=== PATIENT | female | born 1970 | race American Indian/Alaskan Native ===

== ENCOUNTER 2016-07-27 09:49 | Emergency (ER) | payer MEDICAID ==
[2016-07-27 10:04] VITALS: BP 114/66
--- NOTE | 2016-07-27 10:32 | Emergency Department Report ---
Entered by EKATERINA MELTON, acting as scribe for FAIZAN CARDONA PA. ED Allergic Reaction HPI - General Chief complaint: Allergic Reaction Stated complaint: RASH/SEVERE ITCHING/SWELLING/PAIN Time Seen by Provider: 07/27/16 10:10 Source: patient Mode of arrival: Ambulatory Limitations: No Limitations - History of Present Illness Initial Comments: 46 y/o female with a PMHx of bipolar disorder and depression c/o allergic reaction and generalized rash for a week. Describes rash as burning in quality. Associated symptoms include itching to affected areas and body aches, but she denies purulent drainage, facial swelling, sore throat, chest pain, SOB, nausea , vomiting, fever, and chills. Rates body aches a 6/10 in severity. Notes not taking or applying OTC medications for relief. NKDA. ANTONIO Complaint: allergic reaction, hives, other (rash) Onset/Timin -: week(s) Exposure: unknown Symptoms: rash (generalized), itching. denies: facial swelling, lip swelling, difficulty swallowing, difficulty breathing, orolingual swelling, syncopy, dizziness, nausea, vomiting, abdominal pain Severity: moderate (6/10 bodyaches) Treatment Prior to Arrival: none Previous Allergy History: none - Related Data Home Medications Medication Instructions Recorded Confirmed Last Taken Quetiapine Fumarate [Seroquel] 800 mg PO DAILY 07/12/15 07/12/15 07/11/15 Sertraline HCl [Zoloft] 50 mg PO DAILY 07/12/15 07/12/15 07/11/15 Previous Rx's Medication Instructions Recorded Last Taken Type Ferrous Sulfate [Feosol 325 MG tab] 325 mg PO BID #60 tablet 07/13/15 Unknown Rx HYDROcodone/APAP 5-325 [[place] 1 each PO Q6HR PRN #20 tablet 07/13/15 Unknown Rx 5/325] Ibuprofen [Motrin] 800 mg PO Q8HR PRN #30 tablet 07/13/15 Unknown Rx Promethazine [Phenergan TAB] 25 mg PO Q6HR PRN #30 tab 07/13/15 Unknown Rx hydrOXYzine HCL [Atarax] 25 mg PO Q6HR PRN #20 tablet 07/27/16 Unknown Rx methylPREDNISolone [Medrol] 4 mg PO QDAY #1 tab.ds.pk 07/27/16 Unknown Rx Allergies Allergy/AdvReac Type Severity Reaction Status Date / Time No Known Allergies Allergy Unverified 07/12/15 14:47 ED Review of Systems Comment: All other systems reviewed and negative Constitutional: no symptoms reported. denies: chills, fever Eyes: denies: eye pain, eye discharge, vision change ENT: denies: ear pain, throat pain Respiratory: denies: cough, shortness of breath, SOB with exertion, SOB at rest , stridor, wheezing Cardiovascular: denies: chest pain, palpitations, edema, syncope Endocrine: no symptoms reported Gastrointestinal: denies: abdominal pain, nausea, vomiting, diarrhea Genitourinary: denies: urgency, dysuria, discharge Musculoskeletal: myalgia (body aches). denies: back pain, joint swelling, arthralgia Skin: rash (generalized). denies: lesions, other (facial swelling) Neurological: denies: headache, weakness, paresthesias, other (dizziness) Psychiatric: denies: anxiety, depression Hematological/Lymphatic: denies: easy bleeding, easy bruising ED Past Medical Hx - Past Medical History Previous Medical History?: Yes Hx Psychiatric Treatment: Yes (bipoplar, depression) Additional medical history: abd. pain - Surgical History Past Surgical History?: Yes Hx Appendectomy: Yes (with right oophorectomy) Additional Surgical History: Umbilical hernia repair - Social History Smoking Status: Never Smoker Substance Use Type: Alcohol, Prescribed - Medications Home Medications: Home Medications Medication Instructions Recorded Confirmed Last Taken Type Quetiapine Fumarate [Seroquel] 800 mg PO DAILY 07/12/15 07/12/15 07/11/15 History Sertraline HCl [Zoloft] 50 mg PO DAILY 07/12/15 07/12/15 07/11/15 History Ferrous Sulfate [Feosol 325 MG tab] 325 mg PO BID #60 tablet 07/13/15 Unknown Rx HYDROcodone/APAP 5-325 [[place] 1 each PO Q6HR PRN #20 tablet 07/13/15 Unknown Rx 5/325] Ibuprofen [Motrin] 800 mg PO Q8HR PRN #30 tablet 07/13/15 Unknown Rx Promethazine [Phenergan TAB] 25 mg PO Q6HR PRN #30 tab 07/13/15 Unknown Rx hydrOXYzine HCL [Atarax] 25 mg PO Q6HR PRN #20 tablet 07/27/16 Unknown Rx methylPREDNISolone [Medrol] 4 mg PO QDAY #1 tab.ds.pk 07/27/16 Unknown Rx ED Physical Exam - General Limitations: No Limitations General appearance: alert, in no apparent distress - Head Head exam: Present: atraumatic, normocephalic - Eye Eye exam: Present: normal appearance, PERRL, EOMI Pupils: Present: normal accommodation - ENT ENT exam: Present: normal exam, normal orophraynx, mucous membranes moist - Expanded ENT Exam Expanded Mouth exam: Present: normal external inspection (uvula is midline and oral airway is patent), tongue normal, other (no angioedema present) Teeth exam: Present: normal inspection Throat exam: Positive: normal inspection. Negative: tonsillar erythema, tonsillomegaly, tonsillar exudate - Neck Neck exam: Present: normal inspection, full ROM. Absent: lymphadenopathy - Respiratory Respiratory exam: Present: normal lung sounds bilaterally. Absent: respiratory distress, wheezes, rales, rhonchi, stridor - Cardiovascular Cardiovascular Exam: Present: regular rate, normal rhythm, normal heart sounds. Absent: systolic murmur, diastolic murmur, rubs, gallop - GI/Abdominal GI/Abdominal exam: Present: soft, normal bowel sounds - Extremities Exam Extremities exam: Present: normal inspection - Back Exam Back exam: Present: normal inspection - Neurological Exam Neurological exam: Present: alert, oriented X3 - Psychiatric Psychiatric exam: Present: normal affect, normal mood - Skin Skin exam: Present: warm, dry, intact, rash - Expanded Skin Exam Expanded Type of lesion: Present: rash Distribution of rash: generalized Description of rash: Present: urticarial ED Course Vital Signs 07/27/16 10:00 Temperature 98 F Pulse Rate 72 Respiratory 18 Rate Blood Pressure 114/66 O2 Sat by Pulse 98 Oximetry ED Disposition Clinical Impression: Urticaria Disposition: DISCHARGED TO HOME OR SELFCARE Is pt being admited?: No Condition: Stable Instructions: Urticaria (ED) Prescriptions: hydrOXYzine HCL [Atarax] 25 mg PO Q6HR PRN #20 tablet PRN Reason: Itching methylPREDNISolone [Medrol] 4 mg PO QDAY #1 tab.ds.pk Forms: Work/School Release Form(ED) This documentation as recorded by the GERONIMO kelly JASMINE,accurately reflects the service I personally performed and the decisions made by me,FAIZAN CARDONA PA.
[2016-07-27] MEDS ORDERED: DECADRON IM ONE (10:34)
== END 2016-07-27 10:45 | disposition home or self-care (01) ==
LOC: ED 09:49
DX: L29.9 Pruritus, unspecified (principal); F31.9 Bipolar disorder, unspecified; Y92.9 Unspecified place or not applicable
CPT/HCPCS: 96372; 99282; J1100

== ENCOUNTER 2016-08-13 14:22 | Emergency (ER) | payer MEDICAID ==
[2016-08-13 14:36] VITALS: BP 127/78
--- NOTE | 2016-08-20 10:23 | ED Elopement Review ---
ED Pt Elopement review - Results review Lab results: Laboratory Tests 08/13/16 14:37 POC Glucose 99 - Call Back decision Pt Call Back Decision: No action required
== END 2016-08-13 18:50 | disposition left against medical advice (07) ==
LOC: ED 14:22
DX: R22.0 Localized swelling, mass and lump, head (principal); H53.8 Other visual disturbances; Z53.21 Procedure and treatment not carried out due to patient leaving prior to being seen by health care provider
CPT/HCPCS: 82962; 93005; 93010

== ENCOUNTER 2017-04-07 20:19 | Emergency (ER) | payer MEDICAID ==
[2017-04-08 00:12] LABS: Basophils # (Auto) 0.1 K/mm3 (0.0-0.1); Basophils % (Auto) 0.9 % (0.0-1.8); Eosinophils # (Auto) 0.3 K/mm3 (0.0-0.4); Eosinophils % (Auto) 3.7 % (0.0-4.3); Hematocrit 29.9 % (30.3-42.9); Hemoglobin 9.2 gm/dl (10.1-14.3); Lymphocytes # (Auto) 1.1 K/mm3 (1.2-5.4); Lymphocytes % (Auto) 12.3 % (13.4-35.0); Mean Corpuscular HGB Conc 31 % (30-34); Monocytes # (Auto) 1.3 K/mm3 (0.0-0.8); Monocytes % (Auto) 14.3 % (0.0-7.3); Platelet Count 473 K/mm3 (140-440); Red Blood Count 4.28 M/mm3 (3.65-5.03)
[2017-04-08 00:14] LABS: Mean Corpuscular Hemoglobin 22 pg (28-32); Mean Corpuscular Volume 70 fl (79-97); Red Cell Distribution Width 20.9 % (13.2-15.2)
[2017-04-08 00:16] LABS: BUN/Creatinine Ratio 10; Blood Urea Nitrogen 6 mg/dL (7-17); Calcium 8.7 mg/dL (8.4-10.2); Hemolysis Index 1
--- NOTE | 2017-04-08 00:28 | XRay Report ---
FINAL REPORT EXAM: XR CHEST ROUTINE 2V HISTORY: Shortness of breath. TECHNIQUE: Frontal and lateral radiographs of the chest were obtained. No prior studies are available for comparison. FINDINGS: The exam is limited due to low lung volumes. There is borderline cardiomegaly. The lungs are clear bilaterally, without focal infiltrate or effusion. There is no pneumothorax. There are mild spondylotic changes seen in the spine. IMPRESSION: Low lung volumes, with no active disease seen in the chest.
[2017-04-08] MEDS ORDERED: TESSALON PERLES PO ONE (07:56)
[2017-04-08] MEDS ORDERED: NORCO 5/325 PO ONE (07:56)
[2017-04-08] MEDS ORDERED: NEURONTIN PO ONE (07:56)
[2017-04-08] MEDS ORDERED: NACL 0.9% 1000 ML 1,000 ML IV ONE (07:56)
[2017-04-08] MEDS ORDERED: TORADOL IV ONE (07:56)
[2017-04-08] MEDS ORDERED: DUONEB *Not for PRN Use IH ONE (08:00)
[2017-04-08] MEDS ORDERED: ZITHROMAX PO ONE (08:02)
--- NOTE | 2017-04-08 08:03 | Emergency Department Report ---
- General Chief Complaint: Dyspnea/Respdistress Stated Complaint: FILIPPO/WEAKNESS Time Seen by Provider: 04/08/17 07:23 Source: patient Mode of arrival: Ambulatory Limitations: No Limitations - History of Present Illness Initial Comments: 47-year-old female past medical history of hypertension, bipolar, depression, uterine fibroids with menorrhagia requiring transfusion presents to the hospital with complaints of cough and generalized body aches April 06. Patient also has a past history of diabetes but states her sugar has been good and she is no longer on medication. Patient was admitted to [place] on the until the and received blood transfusion for menorrhagia and anemia. After returning home patient developed a frequent cough initially productive with sputum and became rust-colored. Patient having generalized body aching lacie horses to her leg muscles and paresthesias to her feet that increase with pressure during ambulation. Low-grade fever upon arrival that resolved without ED treatment. Patient did not receive a flu shot this year. - Related Data Home Medications Medication Instructions Recorded Confirmed Last Taken Quetiapine Fumarate [Seroquel] 800 mg PO DAILY 07/12/15 07/12/15 07/11/15 Sertraline HCl [Zoloft] 50 mg PO DAILY 07/12/15 07/12/15 07/11/15 Previous Rx's Medication Instructions Recorded Last Taken Type Ferrous Sulfate [Feosol 325 MG tab] 325 mg PO BID #60 tablet 07/13/15 Unknown Rx HYDROcodone/APAP 5-325 [[place] 1 each PO Q6HR PRN #20 tablet 07/13/15 Unknown Rx 5/325] Promethazine [Phenergan TAB] 25 mg PO Q6HR PRN #30 tab 07/13/15 Unknown Rx hydrOXYzine HCL [Atarax] 25 mg PO Q6HR PRN #20 tablet 07/27/16 Unknown Rx methylPREDNISolone [Medrol] 4 mg PO QDAY #1 tab.ds.pk 07/27/16 Unknown Rx ALBUTEROL Inhaler [ProAir HFA 2 puff IH QID PRN #1 inhalation 04/08/17 Unknown Rx Inhaler] Benzonatate [Tessalon Perles] 100 mg PO Q8HR PRN #30 capsule 04/08/17 Unknown Rx HYDROcodone/ACETAMINOPHEN [[place] 1 each PO Q6H PRN #20 tablet 02/10/18 Unknown Rx 5-325 Tablet] Ibuprofen [Motrin 800 MG tab] 800 mg PO Q8HR PRN #30 tablet 04/08/17 Unknown Rx Inhaler, Assist Devices [Space 1 each MC PRN #1 spacer 04/08/17 Unknown Rx Chamber Plus] Oseltamivir [Tamiflu] 75 mg PO BID #10 cap 04/08/17 Unknown Rx Allergies Allergy/AdvReac Type Severity Reaction Status Date / Time No Known Allergies Allergy Verified 08/13/16 14:30 ED Review of Systems ROS: Stated complaint: FILIPPO/WEAKNESS Other details as noted in HPI Comment: All other systems reviewed and negative Other: Constitutional: No fevers chills Eyes: No eye pain visual changes ENT: No ear pain or throat pain Neck: Denies pain Respiratory: Recent cough, intermittent wheezing Cardiovascular: Chest pain with coughing GI: Denies abdominal pain, nausea, vomiting, diarrhea : Denies dysuria Musculoskeletal: Generalized body and muscle aches, paresthesias to feet Skin: Denies rash, lesions, erythema Neurologic: Denies numbness, weakness Psychiatric: Denies suicidal ideation, hallucinations ED Past Medical Hx - Past Medical History Hx Hypertension: Yes Hx Diabetes: Yes Hx Psychiatric Treatment: Yes (bipoplar, depression) Additional medical history: abd. pain - Surgical History Hx Appendectomy: Yes (with right oophorectomy) Additional Surgical History: Umbilical hernia repair - Social History Smoking Status: Never Smoker Substance Use Type: None - Medications Home Medications: Home Medications Medication Instructions Recorded Confirmed Last Taken Type Quetiapine Fumarate [Seroquel] 800 mg PO DAILY 07/12/15 07/12/15 07/11/15 History Sertraline HCl [Zoloft] 50 mg PO DAILY 07/12/15 07/12/15 07/11/15 History Ferrous Sulfate [Feosol 325 MG tab] 325 mg PO BID #60 tablet 07/13/15 Unknown Rx HYDROcodone/APAP 5-325 [[place] 1 each PO Q6HR PRN #20 tablet 07/13/15 Unknown Rx 5/325] Promethazine [Phenergan TAB] 25 mg PO Q6HR PRN #30 tab 07/13/15 Unknown Rx hydrOXYzine HCL [Atarax] 25 mg PO Q6HR PRN #20 tablet 07/27/16 Unknown Rx methylPREDNISolone [Medrol] 4 mg PO QDAY #1 tab.ds.pk 07/27/16 Unknown Rx ALBUTEROL Inhaler [ProAir HFA 2 puff IH QID PRN #1 inhalation 04/08/17 Unknown Rx Inhaler] Benzonatate [Tessalon Perles] 100 mg PO Q8HR PRN #30 capsule 04/08/17 Unknown Rx HYDROcodone/ACETAMINOPHEN [[place] 1 each PO Q6H PRN #20 tablet 04/08/17 Unknown Rx 5-325 Tablet] Ibuprofen [Motrin 800 MG tab] 800 mg PO Q8HR PRN #30 tablet 04/08/17 Unknown Rx Inhaler, Assist Devices [Space 1 each MC PRN #1 spacer 04/08/17 Unknown Rx Chamber Plus] Oseltamivir [Tamiflu] 75 mg PO BID #10 cap 04/08/17 Unknown Rx ED Physical Exam - General Limitations: No Limitations - Other Other exam information: General: No limitations, patient is alert in no acute distress Head exam: Atraumatic, normocephalic Eyes exam: Normal appearance ENT: Moist mucous membrane, normal oropharynx Neck exam: Normal inspection, full range of motion, no meningismus nontender Respiratory exam: [place] and dry cough on exam with expiratory wheeze auscultated with coughing Cardiovascular: Normal rate and rhythm, normal heart sounds Abdomen: Soft, nondistended, and nontender, with normal bowel sounds, no rebound, or guarding Extremity: Full range of motion normal inspection no deformity, no calf tenderness or edema. Generalized muscle aches with palpation or 2+ DP pulses. Back: Normal Inspection, full range of motion, no tenderness Neurologic: Alert, oriented x3, cranial nerves intact, no motor or sensory deficit Psychiatric: normal affect, normal mood Skin: Warm, dry, intact ED Course Vital Signs 04/07/17 04/08/17 04/08/17 23:26 06:35 06:45 Temperature 100.6 F H Pulse Rate 104 H 80 Pulse Rate [ Posterior Bilateral Throughout] Respiratory 18 19 Rate Respiratory Rate [Posterior Bilateral Throughout] Blood Pressure 134/100 124/68 O2 Sat by Pulse 100 96 Oximetry 04/08/17 04/08/17 04/08/17 06:47 07:00 07:15 Temperature Pulse Rate 67 73 Pulse Rate [ Posterior Bilateral Throughout] Respiratory 20 18 18 Rate Respiratory Rate [Posterior Bilateral Throughout] Blood Pressure 133/51 133/51 O2 Sat by Pulse 99 92 95 Oximetry 04/08/17 04/08/17 04/08/17 07:30 07:45 08:01 Temperature 98.4 F Pulse Rate 78 79 70 Pulse Rate [ Posterior Bilateral Throughout] Respiratory 22 19 19 Rate Respiratory Rate [Posterior Bilateral Throughout] Blood Pressure 142/52 142/52 121/44 O2 Sat by Pulse 94 95 98 Oximetry 04/08/17 04/08/17 04/08/17 08:03 08:15 08:21 Temperature Pulse Rate 75 Pulse Rate [ 90 73 Posterior Bilateral Throughout] Respiratory 20 Rate Respiratory 18 20 Rate [Posterior Bilateral Throughout] Blood Pressure 121/44 O2 Sat by Pulse 96 Oximetry 04/08/17 04/08/17 04/08/17 08:30 08:36 08:45 Temperature Pulse Rate 70 78 Pulse Rate [ Posterior Bilateral Throughout] Respiratory 17 16 18 Rate Respiratory Rate [Posterior Bilateral Throughout] Blood Pressure 125/52 125/52 O2 Sat by Pulse 96 94 Oximetry 04/08/17 04/08/17 04/08/17 09:01 09:15 09:30 Temperature Pulse Rate 71 70 68 Pulse Rate [ Posterior Bilateral Throughout] Respiratory 16 18 16 Rate Respiratory Rate [Posterior Bilateral Throughout] Blood Pressure 103/47 103/47 109/57 O2 Sat by Pulse 94 95 96 Oximetry 04/08/17 04/08/17 04/08/17 09:45 10:00 10:15 Temperature Pulse Rate 70 64 65 Pulse Rate [ Posterior Bilateral Throughout] Respiratory 16 13 17 Rate Respiratory Rate [Posterior Bilateral Throughout] Blood Pressure 109/57 104/56 104/56 O2 Sat by Pulse 95 97 96 Oximetry 04/08/17 04/08/17 04/08/17 10:30 10:45 11:17 Temperature Pulse Rate 74 69 Pulse Rate [ Posterior Bilateral Throughout] Respiratory 12 19 Rate Respiratory Rate [Posterior Bilateral Throughout] Blood Pressure 116/63 116/63 116/63 O2 Sat by Pulse 93 97 98 Oximetry 04/08/17 04/08/17 11:30 11:45 Temperature Pulse Rate 68 82 Pulse Rate [ Posterior Bilateral Throughout] Respiratory 23 18 Rate Respiratory Rate [Posterior Bilateral Throughout] Blood Pressure 125/61 125/61 O2 Sat by Pulse 100 95 Oximetry - Reevaluation(s) Reevaluation #1: 04/08/17 10:56 Patient has frequent coughing initially was generalized body aches. Coughing greatly improved after [place] and albuterol treatment. Patient complains of residual pain to her legs and therefore additional pain medicine ordered. ED Medical Decision Making - Lab Data Result diagrams: 04/07/17 23:46 04/07/17 23:46 - Radiology Data Radiology results: report reviewed Read by radiologist Chest x-ray: low lung volumes and no infiltrate - Medical Decision Making Patient presents with generalized body aches, low-grade fever, and cough after receiving blood transfusion during hospitalization at [place]. Influenza A positive and likely source for fever, myalgias, and cough. No signs of infiltrate on chest x-ray. No signs of sepsis. Patient will be discharged home with Tamiflu and symptomatic treatment. Pt was able to ambulate to the restroom - Differential Diagnosis pneumonia, bronchitis, influenza, transfusion reaction, paresthesias Critical Care Time: No Critical care attestation.: If time is entered above; I have spent that time in minutes in the direct care of this critically ill patient, excluding procedure time. ED Disposition Clinical Impression: Influenza A, Myalgia, Anemia Disposition: TO HOME OR SELFCARE Is pt being admited?: No Does the pt Need Aspirin: No Condition: Stable Instructions: Influenza (ED), Anemia (ED) Additional Instructions: Take the medication as prescribed. Follow-up with your doctor or the doctor provided. Return if symptoms worsen as indicated by a discharge instructions. Continue Motrin and Tylenol as needed for pain and fever. Prescriptions: ALBUTEROL Inhaler [ProAir HFA Inhaler] 2 puff IH QID PRN #1 inhalation PRN Reason: Shortness Of Breath Benzonatate [Tessalon Perles] 100 mg PO Q8HR PRN #30 capsule PRN Reason: Cough HYDROcodone/ACETAMINOPHEN [[place] 5-325 Tablet] 1 each PO Q6H PRN #20 tablet PRN Reason: pain Ibuprofen [Motrin 800 MG tab] 800 mg PO Q8HR PRN #30 tablet PRN Reason: Pain Inhaler, Assist Devices [Space Chamber Plus] 1 each MC PRN #1 spacer Oseltamivir [Tamiflu] 75 mg PO BID #10 cap Referrals: SHER SORTO MD [Primary Care Provider] - 3-5 Days your, doctor [Other] - 3-5 Days Time of Disposition: 12:05
[2017-04-08] MEDS ORDERED: ROBITUSSIN PO NR (10:00)
[2017-04-08] MEDS ORDERED: PERCOCET 5/325 PO ONE (10:55)
[2017-04-08 11:45] VITALS: BP 125/61
== END 2017-04-08 12:15 | disposition home or self-care (01) ==
LOC: ED 20:19
DX: J11.1 Influenza due to unidentified influenza virus with other respiratory manifestations (principal); M79.1 Myalgia; D64.9 Anemia, unspecified; I10 Essential (primary) hypertension; E11.9 Type 2 diabetes mellitus without complications
CPT/HCPCS: 36415; 71046; 80048; 83735; 84703; 85025; 87400; 93005; 93010; 94640; 96361; 96374; 99284; J1885; J7030

== ENCOUNTER 2017-04-22 11:15 | Emergency (ER) | payer MEDICAID ==
--- NOTE | 2017-04-22 12:05 | Emergency Department Report ---
ED Female HPI - General Chief complaint: Urogenital-Female Stated complaint: VAGINAL DISCHARGE Time Seen by Provider: 04/22/17 11:40 Source: patient Mode of arrival: Ambulatory Limitations: No Limitations - History of Present Illness Initial comments: 47-year-old -[place] female with a past medical history of bipolar schizophrenia and depression comes in today complaining of a discharge from her vaginal. Patient also complains of nausea chills or cold sweats. Patient reports that she removed a tampon on Monday that was in her vaginal for 9 days. She hasn't taken trauma and all hydrocodone for pain which has not helped. Patient reports that she has been bothered by bleeding for 1 month. She reports she has a history of fibroids and is followed by Dr. Andrea DESIGNER/WRITER in [place]. She reports she is supposed to be scheduled for fibroids to remove moved either May or June. Patient reports that she had a MAXIMUM TEMPERATURE of 102 for 3 days. She reports that she last took Tylenol liquid yesterday. Patient comes in afebrile with stable blood pressure and heart rate stable. Patient does report that she has not taken her psychotropic medications in 1 week. She was unsure to take it with her cold flulike medication that she was seen here on 04/08/2017. Complaint: vaginal discharge -: week(s) (1) - Related Data Home Medications Medication Instructions Recorded Confirmed Last Taken Quetiapine Fumarate [Seroquel] 800 mg PO DAILY 07/12/15 07/12/15 07/11/15 Sertraline HCl [Zoloft] 50 mg PO DAILY 07/12/15 07/12/15 07/11/15 Previous Rx's Medication Instructions Recorded Last Taken Type Ferrous Sulfate [Feosol 325 MG tab] 325 mg PO BID #60 tablet 07/13/15 Unknown Rx hydrOXYzine HCL [Atarax] 25 mg PO Q6HR PRN #20 tablet 07/27/16 Unknown Rx ALBUTEROL Inhaler [ProAir HFA 2 puff IH QID PRN #1 inhalation 04/08/17 Unknown Rx Inhaler] Benzonatate [Tessalon Perles] 100 mg PO Q8HR PRN #30 capsule 04/08/17 Unknown Rx HYDROcodone/ACETAMINOPHEN [[place] 1 each PO Q6H PRN #20 tablet 04/08/17 Unknown Rx 5-325 Tablet] Ibuprofen [Motrin 800 MG tab] 800 mg PO Q8HR PRN #30 tablet 04/08/17 Unknown Rx Nitrofurantoin Monohyd/M-Cryst 100 mg PO BID #20 capsule 04/22/17 Unknown Rx [Macrobid 100 mg Capsule] metroNIDAZOLE [Flagyl] 500 mg PO Q8HR #21 tablet 04/22/17 Unknown Rx Allergies Allergy/AdvReac Type Severity Reaction Status Date / Time No Known Allergies Allergy Verified 08/13/16 14:30 ED Review of Systems ROS: Stated complaint: VAGINAL DISCHARGE Other details as noted in HPI Constitutional: chills, fever Eyes: denies: eye pain, eye discharge, vision change ENT: denies: ear pain, throat pain Respiratory: denies: cough, shortness of breath, wheezing Cardiovascular: denies: chest pain, palpitations Endocrine: no symptoms reported Gastrointestinal: abdominal pain, nausea Genitourinary: discharge Musculoskeletal: denies: back pain, joint swelling, arthralgia Skin: denies: rash, lesions Neurological: denies: headache, weakness, paresthesias Psychiatric: denies: anxiety, depression Hematological/Lymphatic: denies: easy bleeding, easy bruising ED Past Medical Hx - Past Medical History Previous Medical History?: Yes Hx Hypertension: Yes Hx Diabetes: Yes Hx Psychiatric Treatment: Yes (bipoplar, depression) Additional medical history: abd. pain - Surgical History Hx Appendectomy: Yes (with right oophorectomy) Additional Surgical History: Umbilical hernia repair - Social History Smoking Status: Never Smoker Substance Use Type: None - Medications Home Medications: Home Medications Medication Instructions Recorded Confirmed Last Taken Type Quetiapine Fumarate [Seroquel] 800 mg PO DAILY 07/12/15 07/12/15 07/11/15 History Sertraline HCl [Zoloft] 50 mg PO DAILY 07/12/15 07/12/15 07/11/15 History Ferrous Sulfate [Feosol 325 MG tab] 325 mg PO BID #60 tablet 07/13/15 Unknown Rx hydrOXYzine HCL [Atarax] 25 mg PO Q6HR PRN #20 tablet 07/27/16 Unknown Rx ALBUTEROL Inhaler [ProAir HFA 2 puff IH QID PRN #1 inhalation 04/08/17 Unknown Rx Inhaler] Benzonatate [Tessalon Perles] 100 mg PO Q8HR PRN #30 capsule 04/08/17 Unknown Rx HYDROcodone/ACETAMINOPHEN [[place] 1 each PO Q6H PRN #20 tablet 04/08/17 Unknown Rx 5-325 Tablet] Ibuprofen [Motrin 800 MG tab] 800 mg PO Q8HR PRN #30 tablet 04/08/17 Unknown Rx Nitrofurantoin Monohyd/M-Cryst 100 mg PO BID #20 capsule 04/22/17 Unknown Rx [Macrobid 100 mg Capsule] metroNIDAZOLE [Flagyl] 500 mg PO Q8HR #21 tablet 04/22/17 Unknown Rx ED Physical Exam - General Limitations: No Limitations General appearance: alert, in no apparent distress - Head Head exam: Present: atraumatic, normocephalic - Eye Eye exam: Present: normal appearance - ENT ENT exam: Present: mucous membranes moist - Neck Neck exam: Present: normal inspection - Respiratory Respiratory exam: Present: normal lung sounds bilaterally. Absent: respiratory distress - Cardiovascular Cardiovascular Exam: Present: regular rate, normal rhythm. Absent: systolic murmur, diastolic murmur, rubs, gallop - GI/Abdominal GI/Abdominal exam: Present: soft, normal bowel sounds - Expanded Exam Expanded External exam: Present: normal Speculum exam: Present: vaginal discharge, other (diagnosis cervical motion tenderness no masses or foreign bodies located in the adnexal area.) - Extremities Exam Extremities exam: Present: normal inspection - Back Exam Back exam: Present: normal inspection - Neurological Exam Neurological exam: Present: alert, oriented X3 - Psychiatric Psychiatric exam: Present: normal affect, normal mood - Skin Skin exam: Present: warm, dry, intact, normal color. Absent: rash ED Course Vital Signs 04/22/17 11:18 Temperature 98.4 F Pulse Rate 81 Respiratory 18 Rate Blood Pressure 122/83 [Right] O2 Sat by Pulse 98 Oximetry ED Medical Decision Making - Medical Decision Making Patient been evaluated by this provider fast track. Symptoms CBC BMP urinalysis urine culture wet prep gentle cultures for chlamydia and gonorrhea samples. Would consider toxic shock syndrome since the patient's vital signs are stable we'll treat her for vaginal infection. We'll refer her back to her DESIGNER/WRITER doctor Dr. Andrea in [place]. Critical care attestation.: If time is entered above; I have spent that time in minutes in the direct care of this critically ill patient, excluding procedure time. ED Disposition Clinical Impression: UTI (urinary tract infection) Qualifiers: Urinary tract infection type: site unspecified Hematuria presence: with hematuria Qualified Code(s): N39.0 - Urinary tract infection, site not specified ; R31.9 - Hematuria, unspecified; R31.9 - Hematuria, unspecified Vaginitis Qualifiers: Chronicity: acute Qualified Code(s): N76.0 - Acute vaginitis Disposition: TO HOME OR SELFCARE Is pt being admited?: No Does the pt Need Aspirin: No Condition: Stable Instructions: Bacterial Vaginosis (ED), Urinary Tract Infection in Women (ED) Additional Instructions: Complete antibiotics as prescribed. Continue with your Seroquel a near Zoloft as prescribed. Follow-up which her primary care provider for your history of anemia. Prescriptions: metroNIDAZOLE [Flagyl] 500 mg PO Q8HR #21 tablet Nitrofurantoin Monohyd/M-Cryst [Macrobid 100 mg Capsule] 100 mg PO BID #20 capsule Referrals: PRIMARY CARE,MD [Primary Care Provider] - 3-5 Days [facility] [Provider Group] - 3-5 Days [facility] [Provider Group] - 3-5 Days Forms: Work/School Release Form(ED)
[2017-04-22] MEDS ORDERED: NORCO 7.5/325 PO ONE (12:21)
[2017-04-22 12:28] LABS: Bacteria,Urine 1+ /HPF (Negative); Bilirubin,Urine NEG (Negative); Blood,Urine MOD (Negative); Color,Urine Amber (Yellow); Mucus,Urine 3+ /HPF
[2017-04-22 12:51] LABS: Basophils # (Auto) 0.1 K/mm3 (0.0-0.1); Basophils % (Auto) 0.7 % (0.0-1.8); Eosinophils # (Auto) 0.1 K/mm3 (0.0-0.4); Eosinophils % (Auto) 0.6 % (0.0-4.3); Hematocrit 26.8 % (30.3-42.9); Hemoglobin 8.3 gm/dl (10.1-14.3); Lymphocytes # (Auto) 1.7 K/mm3 (1.2-5.4); Lymphocytes % (Auto) 15.3 % (13.4-35.0); Mean Corpuscular HGB Conc 31 % (30-34); Monocytes # (Auto) 1.4 K/mm3 (0.0-0.8); Monocytes % (Auto) 12.8 % (0.0-7.3); Platelet Count 456 K/mm3 (140-440); Red Blood Count 3.88 M/mm3 (3.65-5.03)
[2017-04-22 12:54] LABS: Mean Corpuscular Hemoglobin 22 pg (28-32); Mean Corpuscular Volume 69 fl (79-97); Red Cell Distribution Width 21.2 % (13.2-15.2)
[2017-04-22 13:26] LABS: BUN/Creatinine Ratio 12; Blood Urea Nitrogen 7 mg/dL (7-17); Calcium 8.7 mg/dL (8.4-10.2); Hemolysis Index 2
[2017-04-22 13:31] VITALS: BP 118/80
== END 2017-04-22 13:31 | disposition home or self-care (01) ==
LOC: ED 11:15
DX: N39.0 Urinary tract infection, site not specified (principal); N76.0 Acute vaginitis; R31.9 Hematuria, unspecified; I10 Essential (primary) hypertension; E11.9 Type 2 diabetes mellitus without complications; F31.9 Bipolar disorder, unspecified
CPT/HCPCS: 36415; 80048; 81001; 85025; 87086; 87116; 87210; 87591

== ENCOUNTER 2017-10-13 05:30 | Emergency (ER) | payer MEDICAID ==
[2017-10-13 06:02] VITALS: BP 142/77
[2017-10-13] MEDS ORDERED: TYLENOL PO ONE (06:04)
[2017-10-13] MEDS ORDERED: NACL 0.9% 1000 ML 2,000 ML ONE (09:30)
== END 2017-10-13 06:11 | disposition left against medical advice (07) ==
LOC: ED 05:30
DX: J02.9 Acute pharyngitis, unspecified (principal); R11.10 Vomiting, unspecified; E11.9 Type 2 diabetes mellitus without complications; G43.909 Migraine, unspecified, not intractable, without status migrainosus; I10 Essential (primary) hypertension; F31.9 Bipolar disorder, unspecified; Z90.49 Acquired absence of other specified parts of digestive tract; Z53.21 Procedure and treatment not carried out due to patient leaving prior to being seen by health care provider
CPT/HCPCS: 87116; 87430; J7030

== ENCOUNTER 2021-08-28 18:19 | Emergency (ER) | payer MEDICAID ==
[2021-08-28] MEDS ORDERED: ACETAMINOPHEN 325 MG TAB PO ONE (18:38)
[2021-08-28] MEDS ORDERED: SODIUM CHLORIDE 0.9% 1000 ML 1,000 ML IV ONE (18:38)
[2021-08-28 19:21] LABS: Hematocrit 39.4 % (30.3-42.9); Hemoglobin 12.8 gm/dl (10.1-14.3); Mean Corpuscular HGB Conc 32 % (30-34); Mean Corpuscular Volume 89 fl (79-97); Platelet Count 296 K/mm3 (140-440); Red Blood Count 4.42 M/mm3 (3.65-5.03)
[2021-08-28 19:28] LABS: Bilirubin,Urine NEG (Negative); Blood,Urine MOD (Negative); Color,Urine Yellow (Yellow)
[2021-08-28 19:30] LABS: Bacteria,Urine 1+ /HPF (Negative); Mucus,Urine FEW /HPF
[2021-08-28 19:31] LABS: WBC,Urine > 182.0 /HPF (0.0-6.0)
[2021-08-28 19:43] LABS: Alanine Aminotransferase 28 units/L (7-56); Albumin 4.4 g/dL (3.9-5); BUN/Creatinine Ratio 16; Blood Urea Nitrogen 14 mg/dL (7-17); Calcium 9.3 mg/dL (8.4-10.2); Hemolysis Index 2
[2021-08-28] MEDS ORDERED: KETOROLAC 30 MG/1 ML INJ IV ONE (20:00)
[2021-08-28] MEDS ORDERED: cefTRIAXone/NS 1 GM/50 ML 1 GM/50 ML BAG IV ONE (20:00)
--- NOTE | 2021-08-28 20:58 | Cat Scan Report ---
CT ABDOMEN AND PELVIS WITHOUT CONTRAST INDICATION / CLINICAL INFORMATION: fever, flank pain. TECHNIQUE: Axial CT images were obtained through the abdomen and pelvis without IV contrast. All CT scans at this location are performed using CT dose reduction for ALARA by means of automated exposure control. COMPARISON: None available. FINDINGS: LOWER CHEST: No significant abnormality. LIVER: No significant abnormality. GALLBLADDER: No significant abnormality. BILE DUCTS: No significant abnormality. PANCREAS: No significant abnormality. SPLEEN: No significant abnormality. ADRENALS: No significant abnormality. RIGHT KIDNEY / URETER: No significant abnormality. LEFT KIDNEY / URETER: There is subtle asymmetric stranding adjacent to the left kidney. STOMACH / SMALL BOWEL: No significant abnormality. COLON: No significant abnormality. There is diverticulosis. APPENDIX: No significant abnormality. PERITONEUM: No free fluid. No free air. No fluid collection. LYMPH NODES: No significant adenopathy. AORTA / ARTERIES: No significant abnormality. IVC / VEINS: No significant abnormality. URINARY BLADDER: No significant abnormality. REPRODUCTIVE ORGANS: Peripherally calcified uterine fibroids. ADDITIONAL FINDINGS: None. SKELETAL SYSTEM: No significant abnormality. IMPRESSION: 1. Subtle asymmetric stranding adjacent to the left kidney is nonspecific. Given the history of fever and flank pain, cannot exclude pyelonephritis. There is no hydronephrosis or urolithiasis.. 2. Incidental findings as above. Signer Name: Parmjit Alejandre MD Signed: 08/28/2021 8:54 PM Workstation Name: [id number]
[2021-08-28] MEDS ORDERED: oxyCODONE /ACETAMINOPHEN 5-325MG TAB PO ONE (21:05)
[2021-08-28] MEDS ORDERED: levoFLOXacin 500 MG TAB PO ONE (21:05)
--- NOTE | 2021-08-28 21:08 | Emergency Department Report ---
ED Female HPI - General Chief complaint: Abdominal Pain Stated complaint: BLADDER INFECTION/POSS STD EXPOSURE Time Seen by Provider: 08/28/21 19:01 Source: patient Mode of arrival: Ambulatory Limitations: No Limitations - History of Present Illness Initial comments: 51-year-old black female with a past medical history of diabetes, hypertension, and DVT presents to the emergency department for evaluation of 5-day history of fever. She states that over the past 5 days she has had increasing abdominal and right flank pain along with worsening fever and nausea. She denies active vomiting, dysuria, diarrhea, and vaginal discharge. She states that her T-max at home was 102. She states that she feels like she has not been urinating enough because she has had her stomach wrapped up secondary to Botox injections in her abdomen. MD Complaint: other -: Gradual (Left flank pain and lower abdominal pain), days(s) (5) Location: LLQ, RLQ Radiation: L flank Severity: severe Severity scale (0 -10): 10 Quality: aching Consistency: constant Worsens with: urination, movement Are you Now?: No Associated Symptoms: abdominal pain, nausea/vomiting, fever/chills, loss of appetite. denies: vaginal discharge, vaginal bleeding, headaches, dysuria, hematuria, rash, seizure, shortness of breath, syncope, weakness - Related Data Sexually active: Yes Previous Rx's Medication Instructions Recorded Last Taken Type Acetaminophen/Codeine [Tylenol 1 tab PO Q6H PRN #12 tab 08/28/21 Unknown Rx /Codeine # 3 tab] Ciprofloxacin HCl 500 mg PO BID 7 Days #14 tab 08/28/21 Unknown Rx Ketorolac [Toradol] 10 mg PO Q6H PRN #12 tab 08/28/21 Unknown Rx Allergies Allergy/AdvReac Type Severity Reaction Status Date / Time No Known Allergies Allergy Verified 07/05/17 09:45 ED Review of Systems ROS: Stated complaint: BLADDER INFECTION/POSS STD EXPOSURE Other details as noted in HPI Comment: All other systems reviewed and negative Constitutional: chills, fever, malaise, weakness Eyes: denies: vision change ENT: denies: congestion Respiratory: denies: shortness of breath Cardiovascular: denies: chest pain, palpitations Gastrointestinal: abdominal pain, nausea, vomiting. denies: diarrhea, hematemesis, melena, hematochezia Genitourinary: denies: urgency, dysuria, frequency, hematuria, discharge, dyspareunia Musculoskeletal: back pain Skin: denies: rash, lesions Neurological: denies: headache, weakness Psychiatric: denies: anxiety, depression ED Past Medical Hx - Past Medical History Previous Medical History?: Yes Hx Hypertension: Yes Hx Diabetes: Yes (Lost weight, sugars okay, just being observed right now) Hx GERD: Yes Hx Headaches / Migraines: Yes (migraines) Hx Psychiatric Treatment: Yes (bipoplar, depression) Additional medical history: abd. pain - Surgical History Past Surgical History?: Yes Hx Appendectomy: Yes (with right oophorectomy) Additional Surgical History: Umbilical hernia repair - Social History Smoking Status: Never Smoker Substance Use Type: Alcohol - Medications Home Medications: Home Medications Medication Instructions Recorded Confirmed Last Taken Type Acetaminophen/Codeine [Tylenol 1 tab PO Q6H PRN #12 tab 08/28/21 Unknown Rx /Codeine # 3 tab] Ciprofloxacin HCl 500 mg PO BID 7 Days #14 tab 08/28/21 Unknown Rx Ketorolac [Toradol] 10 mg PO Q6H PRN #12 tab 08/28/21 Unknown Rx ED Physical Exam - General Limitations: No Limitations General appearance: alert, in no apparent distress - Head Head exam: Present: atraumatic, normocephalic - Eye Eye exam: Present: normal appearance. Absent: conjunctival injection, periorbital swelling, periorbital tenderness - Neck Neck exam: Present: normal inspection. Absent: tenderness, lymphadenopathy - Respiratory Respiratory exam: Present: normal lung sounds bilaterally. Absent: respiratory distress, wheezes, rales, rhonchi, stridor, chest wall tenderness - Cardiovascular Cardiovascular Exam: Present: tachycardia, normal heart sounds - GI/Abdominal GI/Abdominal exam: Present: soft, tenderness, normal bowel sounds. Absent: distended, guarding (Left lower quadrant), rebound, rigid - Extremities Exam Extremities exam: Present: normal inspection, normal capillary refill. Absent: pedal edema, joint swelling, calf tenderness - Back Exam Back exam: Present: normal inspection, tenderness, CVA tenderness (L). Absent: CVA tenderness (R), vertebral tenderness - Neurological Exam Neurological exam: Present: alert, oriented X3, CN II-XII intact, normal gait, reflexes normal. Absent: motor sensory deficit - Psychiatric Psychiatric exam: Present: normal affect, normal mood - Skin Skin exam: Present: warm, dry, intact, normal color ED Course Vital Signs 08/28/21 08/28/21 18:29 21:28 Temperature 101.6 F H Pulse Rate 115 H 101 H Respiratory 24 14 Rate Blood Pressure 151/86 156/87 [Right] O2 Sat by Pulse 98 100 Oximetry - Reevaluation(s) Reevaluation #1: 08/28/21 21:04 Pain improved patient states that she feels much better. Patient noted to be sitting up in bed talking and laughing without complaints of at this time. ED Medical Decision Making - Lab Data Result diagrams: 08/28/21 19:01 08/28/21 19:01 - Radiology Data Radiology results: report reviewed, image reviewed CT of the abdomen and pelvis without contrast: FINDINGS: LOWER CHEST: No significant abnormality. LIVER: No significant abnormality. GALLBLADDER: No significant abnormality. BILE DUCTS: No significant abnormality. PANCREAS: No significant abnormality. SPLEEN: No significant abnormality. ADRENALS: No significant abnormality. RIGHT KIDNEY / URETER: No significant abnormality. LEFT KIDNEY / URETER: There is subtle asymmetric stranding adjacent to the left kidney. STOMACH / SMALL BOWEL: No significant abnormality. COLON: No significant abnormality. There is diverticulosis. APPENDIX: No significant abnormality. PERITONEUM: No free fluid. No free air. No fluid collection. LYMPH NODES: No significant adenopathy. AORTA / ARTERIES: No significant abnormality. IVC / VEINS: No significant abnormality. URINARY BLADDER: No significant abnormality. REPRODUCTIVE ORGANS: Peripherally calcified uterine fibroids. ADDITIONAL FINDINGS: None. SKELETAL SYSTEM: No significant abnormality. IMPRESSION: 1. Subtle asymmetric stranding adjacent to the left kidney is nonspecific. Given the history of fever and flank pain, cannot exclude pyelonephritis. There is no hydronephrosis or urolithiasis.. 2. Incidental findings as above. - Medical Decision Making 51-year-old black female with a past medical history of diabetes, hypertension, and DVT presents to the emergency department for evaluation of 5-day history of fever. She states that over the past 5 days she has had increasing abdominal and right flank pain along with worsening fever and nausea. She denies active vomiting, dysuria, diarrhea, and vaginal discharge. She states that her T-max at home was 102. She states that she feels like she has not been urinating enough because she has had her stomach wrapped up secondary to Botox injections in her abdomen. Patient noted to have CVA tenderness on exam and CT scan positive for probable left kidney pyelonephritis. Patient treated in the emergency department with 1 g of IV Rocephin along with Toradol, morphine, and Zofran for pain and nausea. She will be discharged home with 7-day course of Cipro along with Toradol, and Tylenol 3 to use as directed. She is advised to follow-up with her primary care provider if worsening symptoms over the next 2 or 3 days or return to the emergency department if worsening fever, fatigue, weakness, abdominal pain, or inability to urinate. She verbalizes understanding of and agreement with plan of care. Critical care attestation.: If time is entered above; I have spent that time in minutes in the direct care of this critically ill patient, excluding procedure time. ED Disposition Clinical Impression: Pyelonephritis Disposition: 01 HOME / SELF CARE / HOMELESS Is pt being admited?: No Does the pt Need Aspirin: No Condition: Stable Instructions: Pyelonephritis, Adult, [id number], Abdominal Pain (ED) Additional Instructions: Take medications as prescribed. Increase intake of noncaffeinated fluids. Follow-up with primary care provider if worsening symptoms. Return to the emergency department as needed. Prescriptions: Ciprofloxacin HCl 500 mg PO BID 7 Days #14 tab Ketorolac [Toradol] 10 mg PO Q6H PRN #12 tab PRN Reason: Pain Acetaminophen/Codeine [Tylenol /Codeine # 3 tab] 1 tab PO Q6H PRN #12 tab PRN Reason: Pain , Severe (7-10) Referrals: MAG DELACRUZ MD [Staff Physician] - 3-5 Days Forms: Work/School Release Form(ED) Time of Disposition: 21:08
[2021-08-28 21:28] VITALS: BP 156/87
[2021-08-28 22:43] LABS: Total Cells Counted 100
[2021-08-28 22:44] LABS: Anisocytosis 1+; Basophils % (Manual) 0 % (0.0-1.8); Eosinophils % (Manual) 0 % (0.0-4.3); Platelet Estimate Consistent w Auto
== END 2021-08-28 22:05 | disposition home or self-care (01) ==
LOC: ED 18:19
DX: R10.9 Unspecified abdominal pain (principal); N12 Tubulo-interstitial nephritis, not specified as acute or chronic; F10.20 Alcohol dependence, uncomplicated; I10 Essential (primary) hypertension; E11.9 Type 2 diabetes mellitus without complications; Z90.89 Acquired absence of other organs
CPT/HCPCS: 36415; 74176; 80053; 81001; 85007; 85025; 96361; 96365; 96375; 99284; J0696; J1885; J7030